=== PATIENT | female | born 1970 | race Caucasian/White ===

== ENCOUNTER 2021-07-28 05:04 | Observation (INO) | payer BC, OTHER, SELFPAY ==
--- NOTE | 2021-07-28 05:22 | PC.NURSE ---
PT WAS DIRECT ADMIT VIA STRETCHER PER [facility] @ [id number]
[2021-07-28 05:32] VITALS: BMI 21.2
[2021-07-28 05:35] VITALS: BP 132/86; PULSE 102; RESP 16; TEMP 36.8; O2SAT 99
[2021-07-28 05:39] LABS: Coronavirus 19, PCR Not Detected (NotDetected); Influenza A, PCR Not Detected (NotDetected); Influenza B, PCR Not Detected (NotDetected)
[2021-07-28 05:44] VITALS: PULSE 90
--- NOTE | 2021-07-28 06:34 | ECG_ITS ---
APPROVED REPORT Exam: Resting ECG HR:94 bpm ECG Measurements Heart Rate 94 AXES AK 144 P 71 QRSd 89 QRS 54 QT 361 T 48 QTc 413 Conclusion SINUS RHYTHM WITH OCCASIONAL SUPRAVENTRICULAR PREMATURE COMPLEXES POSSIBLE LEFT ATRIAL ENLARGEMENT [-0.1mV P-WAVE IN V1/V2] POSSIBLE RIGHT VENTRICULAR CONDUCTION DELAY [RSR (QR) IN V1/V2] SEPTAL MYOCARDIAL INFARCTION , OF INDETERMINATE AGE [40+ ms Q WAVE IN V1/V2] ABNORMAL ECG UNCONFIRMED REPORT Electronically signed by : Barrington Dotson MD 07/28/2021 17:04:14
[2021-07-28 06:36] LABS: Chloride 110 mmol/L (98-107); Potassium 4.1 mmoL/L (3.5-5.1); Sodium 137 mmol/L (136-145)
[2021-07-28 06:38] LABS: Blood Urea Nitrogen 12 mg/dl (7-17); Creatinine Clearance Estimated 83 mL/min (50-200); Estimated Glomerular Filt Rate 89 ml/min (>60); GFR (African American) 107 ML/MIN (>60)
[2021-07-28 06:39] LABS: Alanine Aminotransferase 15 U/L (12-78); Albumin Level 3.7 g/dl (3.5-5.0); Albumin/Globulin Ratio 1.5 (1.1-1.8); Alkaline Phosphatase 54 U/L (38-126); Anion Gap 9.1 mEq/L (5-15); Aspartate Amino Transferase 25 U/L (14-36); Basophils % 0.5 % (0.1-2.0); Bilirubin,Total 0.7 mg/dl (0.2-1.3); Carbon Dioxide 22 mmol/L (22.0-30.0); Eosinophils % 0.6 % (0.1-12.0); Globulin 2.4 g/dL (1.3-3.2); Hematocrit 36.5 % (37.0-47.0); Hemoglobin 11.6 g/dL (12.2-16.2); Lymphocytes # 0.8 K/mm3 (0.7-4.5); Lymphocytes % 12.7 % (10-50); Mean Corpuscular HGB Conc 31.7 g/dL (31.8-35.4); Mean Corpuscular Hemoglobin 25.3 pg (27.0-31.2); Mean Corpuscular Volume 79.7 fl (81-99); Mean Platelet Volume 9.7 fl (7.4-10.4); Monocytes # 0.4 K/mm3 (0.1-1.0); Monocytes % 6.1 % (1.7-9.3); Neutrophils # 4.9 K/mm3 (1.8-7.8); Neutrophils % 80.2 % (37.0-80.0); Platelet Count 192 K/mm3 (142-424); Red Blood Count 4.58 M/mm3 (4.20-5.40); Red Cell Distribution Width 14.9 % (11.5-17.5); Total Protein,Serum 6.1 g/dl (6.3-8.2); White Blood Count 6.1 K/mm3 (4.8-10.8)
[2021-07-28 06:40] LABS: Calcium 8.4 mg/dl (8.4-10.2); Glucose 129 mg/dl (74-100); INR 0.93 (0.9-1.1); Prothrombin Time 10.6 seconds (10.1-12.5)
[2021-07-28 07:41] VITALS: BP 131/86; PULSE 93; RESP 20; TEMP 36.8; O2SAT 98
[2021-07-28 08:00] VITALS: PULSE 93; O2SAT 98
--- NOTE | 2021-07-28 08:00 | CA_ITS ---
APPROVED REPORT EXAM: Comprehensive 2D, Doppler, and color-flow Echocardiogram Health Promoter: Oneyda Murray RDCS Ht: 5 ft 3 in Wt: 120lbs BSA: 1.56 BP: 100/68 mmHg Indications: HEART BLOCK,ABN EKG 2D Dimensions LVOT 1.62 cm (M/F) 1.5-2.5 M-Mode Dimensions RVDd 1.15 cm (0.9-2.6) LA Diam 2.53 cm (1.9-4.0) LVDd 3.86 cm (3.5-5.7) Ao Diam 2.69 cm (2.0-3.7) LVDs 2.89 cm (3.5-5.7) IVSd 0.88 cm (0.6-1.1) PWd 0.86 cm (0.6-1.1) EF (Teich) 50.40% FS 25.10% EDV (Teich) 64.30 mL ESV (Teich) 31.90 mL LV Diastology E Decel Time 167.00 (160-240 msec) E/A Ratio 1.0 MED E' 11.60 (< 7 cm/sec) E'/MED E' Ratio 5.95 (>14) LAT E' 13.40 (<10 cm/sec) E/LAT E' Ratio 5.15 (>14) Mitral Valve MV E Max Ronal. 69.00 (40-130 cm/s) MV A Velocity 66.00 (40-130 cm/s) E/A Ratio 1.05 MV Decel. Time 167.00 (160-240 ms) MV PHT 49.00 ms Tricuspid Valve TR P. Velocity 262.00 cm/s RAP Estimate 10.00 mmHg RVSP 37.40 mmHg Left Ventricle Left atrium is normal size, left ventricle is normal size, hyperdynamic left ventricular systolic function, estimated ejection fraction is 65% with no regional wall motion abnormality, diastolic parameters are inconclusive. Right Ventricle Right atrium and right ventricle are normal size and contractility. Aortic Valve Aortic valve is minimally thickened and fibrosed there is no aortic stenosis or aortic insufficiency. Mitral Valve Mitral valve is grossly normal, there is trace mitral regurgitation. Tricuspid Valve Tricuspid valve is grossly normal, there is trace tricuspid regurgitation, tricuspid regurgitation jet velocity is inadequate for calculation of the right ventricular systolic pressure. Pulmonic Valve Pulmonic valve is poorly visualized. Great Vessels Aortic root is normal is normal size. Inferior vena cava is normal size with normal inspiratory collapse. Pericardium No significant pericardial effusion noted. Conclusion 1. Normal left ventricular size, hyperdynamic left ventricular systolic function, estimated ejection fraction 55% with no regional wall motion abnormality, diastolic parameters are inconclusive. 2. Trace mitral and tricuspid regurgitation. 3. No significant pericardial effusion. 4. Inferior vena cava is normal size with normal inspiratory collapse. Electronically signed by : Laith Brar MD 07/28/2021 13:04:53
--- NOTE | 2021-07-28 08:05 | HMH.PHAVTE ---
[facility] Pharmacy VTE Monitoring - Patient Demographics Allergies/Adverse Reactions: Patient Allergies amoxicillin Allergy (Verified 07/28/21 05:33) Hives Penicillins Allergy (Verified 07/28/21 05:33) Hives Sulfa (Sulfonamide Antibiotics) Allergy (Verified 07/28/21 05:33) Flushing Height: 1.6 m Weight: 54.431 kg - VTE Risk Labs: VTE Related Lab Results Hgb 11.6 g/dL (12.2-16.2) L 07/28/21 06:21 Hct 36.5 % (37.0-47.0) L 07/28/21 06:21 Plt Count 192 K/mm3 (142-424) 07/28/21 06:21 PT 10.6 seconds (10.1-12.5) 07/28/21 06:21 INR 0.93 (0.9-1.1) 07/28/21 06:21 BUN 12 mg/dl (7-17) 07/28/21 06:21 Creatinine 0.70 mg/dl (0.52-1.04) 07/28/21 06:21 Estimated Creat Clear 83 mL/min (50-200) 07/28/21 06:21 Was VTE Risk Assessment Performed: Yes VTE Risk Level: Very Low Risk Clinical Trial Participant: No - Prophylaxis VTE Prophylaxis Ordered?: Yes Types of VTE Prophylaxis: TEDS Knee High
--- NOTE | 2021-07-28 09:09 | P.HP_ITS ---
[facility] [place] History Medical History: Denies:: Diabetes Mellitus Type 1, Diabetes Mellitus Type 2 *Have you ever received a pneumonia vaccine?: No *Have you received a flu vaccine this season?: No Other Medical History: Reports: Arthritis - *Social History Last grade of school completed: Advanced degree Alcohol Intake: never *Occupational Status:: employed Household Members: spouse, children *Travel in the last 8 weeks: Inside the [place] Family Hx:: Cancer, Diabetes, Hyperlipidemia, Kidney Disease, Thyroid Disorder Meds Home Medications Medication Instructions Recorded Confirmed Type No Known Home Medications 07/28/21 07/28/21 History Allergies Allergy/AdvReac Type Severity Reaction Status Date / Time amoxicillin Allergy Hives Verified 07/28/21 05:33 Penicillins Allergy Hives Verified 07/28/21 05:33 Sulfa (Sulfonamide Allergy Flushing Verified 07/28/21 05:33 Antibiotics) Exam Vital signs and Labs for Last 24 Hours: Temp Pulse Resp BP Pulse Ox 98.2 F 93 H 20 131/86 98 07/28/21 07:41 07/28/21 07:41 07/28/21 07:41 07/28/21 07:41 07/28/21 07:41 Laboratory Results - last 24 hr 07/28/21 05:39: SARS-CoV-2 (PCR) Not detected, Influenza A Untype (PCR) Not detected, Influenza Type B (PCR) Not detected 07/28/21 06:21: WBC 6.1, RBC 4.58, Hgb 11.6 L, Hct 36.5 L, MCV 79.7 L, MCH 25.3 L, MCHC 31.7 L, RDW 14.9, Plt Count 192, MPV 9.7, Neut % (Auto) 80.2 H, Lymph % (Auto) 12.7, [place] % (Auto) 6.1, Eos % (Auto) 0.6, Baso % (Auto) 0.5, Neut # (Auto) 4.9, Lymph # (Auto) 0.8, [place] # (Auto) 0.4, Eos # (Auto) 0.0, Baso # (Auto) 0.0 07/28/21 06:21: PT 10.6, INR 0.93 07/28/21 06:21: Sodium 137, Potassium 4.1, Chloride 110 H, Carbon Dioxide 22, Anion Gap 9.1, BUN 12, Creatinine 0.70, Estimated Creat Clear 83, Estimated GFR 89, Est GFR ( Amer) 107, Glucose 129 H, Calcium 8.4, Total Bilirubin 0.7, AST 25, ALT 15, Alkaline Phosphatase 54, Total Protein 6.1 L, Albumin 3.7, Globulin 2.4, Albumin/Globulin Ratio 1.5 I & O for Last 24 hours: Intake & Output 07/25/21 07/26/21 07/27/21 07/28/21 23:59 23:59 23:59 23:59 Weight 120 lb
--- NOTE | 2021-07-28 10:49 | HMH.CNCARD ---
History of Present Illness Consult date: 07/28/21 Requesting physician: Main Aleman Chief complaint: palpitations History of present illness: This is a 51-year-old white female who presented to the emergency department in [facility] with complaints of palpitations and racing of the heart. She states that she is here in [place] from [place] for a horse event in [facility]. She states that last night when she went to bed she felt her heart racing and beating really fast. She states that she has had issues with this in the past and has seen a long chain beamer in [place] for PACs/PVCs. She never really felt the sensations so she has never taken any medications for the PACs/PVCs. Last night the patient states her heart began to race and would not stop. She states that her heart was beating really fast and it made her more anxious. She states that she had a little shortness of breath when her heart rate was really rapid but other than that she has not had any shortness of breath or shortness of breath on exertion. She states that she put her apple watch on and her heart rate was around 1 15-1 20. She states these palpitations lasted for approximately 2 hours before she went to the emergency department. There was concern that the patient had a heart block and the patient was transferred here to [facility]. She states that she has had a few palpitations since being here but she thinks it is because she is nervous. She denies any chest pain or pressure. She denies any lower extremity edema. She denies any fever, chills, nausea, vomiting, diarrhea, PND or orthopnea. She denies any history of coronary disease or family history of coronary disease. [facility] History I have reviewed the patient's past medical history: Yes Medical History: Denies:: Diabetes Mellitus Type 1, Diabetes Mellitus Type 2 *Have you ever received a pneumonia vaccine?: No *Have you received a flu vaccine this season?: No Other Medical History: Reports: Arthritis - *Social History Last grade of school completed: Advanced degree Smoking Status: Never smoker Alcohol Intake: never *Occupational Status:: employed Household Members: spouse, children *Travel in the last 8 weeks: Inside the [place] Family Hx:: Cancer, Diabetes, Hyperlipidemia, Kidney Disease, Thyroid Disorder Meds Home Medications Medication Instructions Recorded Confirmed Type No Known Home Medications 07/28/21 07/28/21 History Allergies Allergy/AdvReac Type Severity Reaction Status Date / Time amoxicillin Allergy Hives Verified 07/28/21 05:33 Penicillins Allergy Hives Verified 07/28/21 05:33 Sulfa (Sulfonamide Allergy Flushing Verified 07/28/21 05:33 Antibiotics) Exam Vital signs and Labs for Last 24 Hours: Temp Pulse Resp BP Pulse Ox 98.2 F 93 H 20 131/86 98 07/28/21 07:41 07/28/21 07:41 07/28/21 07:41 07/28/21 07:41 07/28/21 07:41 Laboratory Results - last 24 hr 07/28/21 05:39: SARS-CoV-2 (PCR) Not detected, Influenza A Untype (PCR) Not detected, Influenza Type B (PCR) Not detected 07/28/21 06:21: WBC 6.1, RBC 4.58, Hgb 11.6 L, Hct 36.5 L, MCV 79.7 L, MCH 25.3 L, MCHC 31.7 L, RDW 14.9, Plt Count 192, MPV 9.7, Neut % (Auto) 80.2 H, Lymph % (Auto) 12.7, [place] % (Auto) 6.1, Eos % (Auto) 0.6, Baso % (Auto) 0.5, Neut # (Auto) 4.9, Lymph # (Auto) 0.8, [place] # (Auto) 0.4, Eos # (Auto) 0.0, Baso # (Auto) 0.0 07/28/21 06:21: PT 10.6, INR 0.93 07/28/21 06:21: Sodium 137, Potassium 4.1, Chloride 110 H, Carbon Dioxide 22, Anion Gap 9.1, BUN 12, Creatinine 0.70, Estimated Creat Clear 83, Estimated GFR 89, Est GFR ( Amer) 107, Glucose 129 H, Calcium 8.4, Total Bilirubin 0.7, AST 25, ALT 15, Alkaline Phosphatase 54, Total Protein 6.1 L, Albumin 3.7, Globulin 2.4, Albumin/Globulin Ratio 1.5 I & O for Last 24 hours: Intake & Output 07/25/21 07/26/21 07/27/21 07/28/21 23:59 23:59 23:59 23:59 Weight 120 lb Narrative: EKG
[2021-07-28 12:00] VITALS: PULSE 106
--- NOTE | 2021-07-28 13:01 | HMH.HPDC ---
General - General Admission date:: 07/28/21 Discharge date: 07/28/21 *Chief complaint: irregular heart rhythm *History of present illness: This is a 51-year-old white female who presented to the emergency department in [facility] with complaints of palpitations and racing of the heart. She states that she is here in [place] from [place] for a horse event in [facility]. She states that last night when she went to bed she felt her heart racing and beating really fast. She states that she has had issues with this in the past and has seen a filteration operator in [place] for PACs/PVCs. She never really felt the sensations so she has never taken any medications for the PACs/PVCs. Last night the patient states her heart began to race and would not stop. She states that her heart was beating really fast and it made her more anxious. She states that she had a little shortness of breath when her heart rate was really rapid but other than that she has not had any shortness of breath or shortness of breath on exertion. She states that she put her apple watch on and her heart rate was around 1 15-1 20. She states these palpitations lasted for approximately 2 hours before she went to the emergency department. There was concern that the patient had a heart block and the patient was transferred here to [facility]. She states that she has had a few palpitations since being here but she thinks it is because she is nervous. She denies any chest pain or pressure. She denies any lower extremity edema. She denies any fever, chills, nausea, vomiting, diarrhea, PND or orthopnea. She denies any history of coronary disease or family history of coronary disease. above from document management consultant When seen this morning patient was in no distress. No ischemic chest pain, dyspnea. Monitor and strips reviewed. Echo was done, pending at time of dictation. [facility] History Medical History: Denies:: Diabetes Mellitus Type 1, Diabetes Mellitus Type 2 *Have you ever received a pneumonia vaccine?: No *Have you received a flu vaccine this season?: No Other Medical History: Reports: Arthritis - *Social History Last grade of school completed: Advanced degree Smoking Status: Never smoker Alcohol Intake: never *Occupational Status:: employed Household Members: spouse, children *Travel in the last 8 weeks: Inside the [place] Family Hx:: Cancer, Diabetes, Hyperlipidemia, Kidney Disease, Thyroid Disorder Review of Systems - Constitutional Denies weakness - Eyes Denies change in vision - ENT Denies abnormal hearing - *Cardiovascular Reports irregular heart rhythm, Reports fast heart rate, Denies chest pain, Denies fainting - *Respiratory Denies cough - *Gastrointestinal Denies abdominal pain - *Genitourinary Denies difficulty urinating - *Musculoskeletal Denies loss of height - Integumentary/Breasts Denies yellowing of the skin - *Neurologic Denies behavioral changes - Psychiatric Denies behavioral changes - Endocrine Reports rapid, pounding, or irregular heartbeat, Denies cold intolerance - Hematologic/Lymphatic Denies easy bleeding - Allergic/Immunologic Denies hives Exam Vital signs and Labs for Last 24 Hours: Temp Pulse Resp BP Pulse Ox 98.2 F 93 H 20 131/86 98 07/28/21 07:41 07/28/21 08:00 07/28/21 07:41 07/28/21 07:41 07/28/21 08:00 Laboratory Results - last 24 hr 07/28/21 05:39: SARS-CoV-2 (PCR) Not detected, Influenza A Untype (PCR) Not detected, Influenza Type B (PCR) Not detected 07/28/21 06:21: WBC 6.1, RBC 4.58, Hgb 11.6 L, Hct 36.5 L, MCV 79.7 L, MCH 25.3 L, MCHC 31.7 L, RDW 14.9, Plt Count 192, MPV 9.7, Neut % (Auto) 80.2 H, Lymph % (Auto) 12.7, [place] % (Auto) 6.1, Eos % (Auto) 0.6, Baso % (Auto) 0.5, Neut # (Auto) 4.9, Lymph # (Auto) 0.8, [place] # (Auto) 0.4, Eos # (Auto) 0.0, Baso # (Auto) 0.0 07/28/21 06:21: PT 10.6, INR 0.93 07/28/21 06:21: Sodium 137, Pot
--- NOTE | 2021-08-01 14:45 | CARE MANAGER ---
Patient returned call and is doing well. 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 She denies any questions or concerns.
== END 2021-07-28 14:20 | disposition home or self-care (01) ==
PROVIDERS: Admitting Provider Emergency Medicine; Visit Provider Emergency Medicine
DX: I49.1 Atrial premature depolarization (principal); I49.3 Ventricular premature depolarization; R00.2 Palpitations; F41.9 Anxiety disorder, unspecified
CPT/HCPCS: 36415; 80053; 85025; 85610; 93005; 93306; C9803; G0378; U0003; U0005